=== PATIENT | male | born 1955 | race Caucasian/White ===

== ENCOUNTER 2017-08-24 23:16 | Emergency (ER) | payer OTHER ==
[~2017-08-24] VITALS: Ht 185.4 cm; Wt 136.1 kg
[~2017-08-24 23:16] MED LIST: ASPIRIN CHILDRE81 MG PO; ATORVASTATIN CA20 MG PO; FLOMAX(MONOGRA0.4 MG PO; GLUCOPHAGE500 MG PO; LOPRESSOR 12.12.5 MG PO; MACROBID100 MG PO; METFORMIN1000 MG PO
[2017-08-25 00:04] VITALS: BP 177/74
--- NOTE | 2017-08-25 00:06 | RADIOLOGY REPORT ---
EXAMINATION: XR ANKLE, RIGHT XR FOOT, RIGHT CLINICAL INFORMATION: Pain COMPARISON: 11/05/2016 TECHNIQUE: 3 views of the right ankle. 3 views of the right foot. FINDINGS: Right ankle: No fracture or dislocation. The ankle mortise is congruent. No ankle joint effusion. Vascular calcifications noted. Mild medial soft tissue swelling. Right foot: No fracture or dislocation. Alignment is maintained. Persistent degenerative changes at the first interphalangeal joint with lateral angulation of the distal phalanx in relation to the proximal phalanx. There is joint space narrowing with subchondral sclerosis and osteophyte formation. Small osteophytes at the first metatarsophalangeal joint, unchanged. IMPRESSION: No acute osseous abnormality of the right ankle or foot. Degenerative changes at the first interphalangeal joint, similar to prior.
--- NOTE | 2017-08-25 00:50 | ED ANKLE/FOOT INJURY COMPLAINT ---
History of Present Illness General Chief Complaint: Foot or Ankle Injury Stated Complaint: PT C/O RT FOOT PAIN ? INJURY Source: patient, old records Exam Limitations: no limitations Vital Signs & Intake/Output Vital Signs & Intake/Output Vital Signs Date Time Temp Pulse Resp B/P B/P Pulse O2 O2 Flow FiO2 Mean Ox Delivery Rate 08/25 0004 99.1 96 16 177/74 98 Room Air Room Air Allergies Coded Allergies: NO KNOWN ALLERGIES (10/22/14) Reconcile Medications Aspirin (Children's Aspirin) 81 MG CTB 1 TAB PO DAILY HEART HEALTH Atorvastatin Calcium (Lipitor) 20 MG TAB 1 TAB PO 1700 CHOLESTROL METFORMIN HCL (Metformin) 1,000 MG TABLET 1 TAB PO BID DIABETES (Reported) Novolog ss while inpatient Metoprolol Tartrate (Lopressor) 12.5 MG TAB 1 TAB PO BID HEART HEALTH Oxycodone HCl/Acetaminophen (Percocet 5-325 MG Tablet) 5 MG-325 MG TABLET 1 TAB PO BID PRN PAIN Tamsulosin Hydrochloride (Flomax) 0.4 MG CAP.ER.24H 1 CAP PO DAILY PROSTATE ( Reported) Triage Note: 61YO MALE TO TRIAGE W/CO R FT AND ANKLE PAIN SINCE YESTERDAY. DENIES ANY TRAUMA "I THINK I MAY HAVE STEPPED IN A HOLE WRONG" Triage Nurses Notes Reviewed? yes Occurred: yesterday Duration: day(s): (2), constant Timing: recent history Severity: moderate Severity Numbers: 7 Pain/Injury Location: Right: Foot. Method of Injury: twisted Modifying Factors: Improves With: rest. Worsens With: movement. Associated Symptoms: swelling HPI: 61-year-old male presents to ER for evaluation complaining of right foot and ankle pain since yesterday. Patient states he is given a torn thinks he that he may have stepped in a hole wrong and twisted his foot. He said pain to the dorsal aspect of his right foot since. No numbness or tingling. He denies any radiation of pain up his leg. He's been taking Tylenol without improvement. Pain is worse with weightbearing (Jarett Caraballo) Past History Travel History Traveled to [place] past 21 day No Medical History Any Pertinent Medical History? see below for history Neurological: DYSTONIA EENT: CATARACT REPAIR Cardiovascular: hypertension, hyperlipidemia Respiratory: NONE Gastrointestinal: HERNIA REPAIR Hepatic: NONE Renal: ENLARGED PROSTATE Musculoskeletal: BACK SURGERY AT L5 Psychiatric: NONE Endocrine: diabetes Blood Disorders: NONE Cancer(s): NONE DRAMA TEACHER/Reproductive: NONE Other Medical Hx: Diabetes History of MRSA: No History of VRE: No History of CDIFF: No Surgical History Surgical History: N Psychosocial History Who do you live with Patient/Self Services at Home None What is your primary language Burkinan Tobacco Use: Never used Family History Family History, If Any: MOTHER FH: heart failure FATHER FH: liver disease Hx Contributory? No (Jarett Caraballo) Review of Systems Review of Systems Constitutional: Reports: see HPI. Comments Review of systems: See HPI, All other systems negative. Constitutional, no chills no fever, HEENT: no sore throat no congestion Cardiovascular: No chest pain Skin: no rashes, no change in skin Respiratory: No dyspnea no cough GI: No nausea no vomiting, Muscle skeletal: no back pain, no neck pain, Neurologic: , no headache Heme/endocrine: No bruising (Jarett Caraballo) Physical Exam Physical Exam General Appearance: well developed/nourished, no apparent distress, alert Leg/Knee/Thigh Left: normal range of motion Comments: Well-developed well-nourished patient in no apparent distress. HEENT: Atraumatic, extraocular motion intact Neck: Supple, FROM Back: FROM Respiratory: No respiratory distress. Patient speaking in full complete sentences. Breath sounds clear to auscultation bilaterally: NO W/R/R Upper Extremities: full range of motion Hip/Pelvis: Atraumatic/Stable. FROM. No pain with pelvic compression Knee: Atraumatic/stable. FROM. No joint swelling, no effusion. No laxity Leg: Atraumatic. Nontender. No edema, 5 out of 5 strength in the lower extremity, normal dorsiflexion of great toe bilaterally, gross sensation is intact, Ankle/Foot: Tenderness to palpation over the dorsal right foot no ecchymosis Atraumatic/stable. Skin intact. FROM. No swelling, no effusion. No laxity on exam Pulses: Normal/equal DP/PT pulses bilaterally. Brisk cap refill Neuro: awake, alert, and oriented to person, place and time. There were no obvious focal neurologic abnormalities. Skin: Warm & dry;No appreciable rash on exposed skin Psych: Mood affect normal, normal memory normal judgment. (Jarett Caraballo) Progress Differential Diagnosis: cellulitis, septic arthritis, gout, fracture, dislocation, sprain, contusion Plan of Care: Orders Procedure Date/time Status Durable Medical Equipment 08/25 54 Active Diagnostic Imaging: Viewed by Me: Radiology Read. Discussed w/RAD: Radiology Read. Radiology Impression: PATIENT: EL MALDONADO PRESENT AGE: 61 PATIENT ACCOUNT NO: [id number] : 59 LOCATION: [facility] ORDERING PHYSICIAN: Chuy Lau MD SERVICE DATE: 08/24/17 EXAM TYPE: RAD - XRY-ANKLE 3 OR MORE VIEWS R; XRY-FOOT COMPLETE, R EXAMINATION: XR ANKLE, RIGHT XR FOOT, RIGHT CLINICAL INFORMATION: Pain COMPARISON: 11/05/2016 TECHNIQUE: 3 views of the right ankle. 3 views of the right foot. FINDINGS: Right ankle: No fracture or dislocation. The ankle mortise is congruent. No ankle joint effusion. Vascular calcifications noted. Mild medial soft tissue swelling. Right foot: No fracture or dislocation. Alignment is maintained. Persistent degenerative changes at the first interphalangeal joint with lateral angulation of the distal phalanx in relation to the proximal phalanx. There is joint space narrowing with subchondral sclerosis and osteophyte formation. Small osteophytes at the first metatarsophalangeal joint, unchanged. IMPRESSION: No acute osseous abnormality of the right ankle or foot. Degenerative changes at the first interphalangeal joint, similar to prior. DICTATED BY: Daron Ku MD DATE/TIME DICTATED:08/25/172057 TRAY ROOM WORKER:LILLY DATE/TIME TRANSCRIBED:08/25/172057 CONFIDENTIAL, DO NOT COPY WITHOUT APPROPRIATE AUTHORIZATION. <Electronically signed in Other Vendor System> SIGNED BY: Daron Ku MD 08/25/17 0006 (Jarett Caraballo) Departure Departure Time of Disposition: 54 Disposition: HOME OR SELF CARE Condition: Stable Clinical Impression Primary Impression: Foot sprain Referrals: José Miguel WHITTAKER,Chuy Glasgow (PCP/Family) Ken Cannon MD Additional Instructions: REST, ICE, TYLENOL MOTRIN FOR PAIN. PERCOCET FOR BREAKTHROUGH PAIN- THIS IS A NARCOTIC AND HIGHLY ADDICTIVE. NO DRIVING OR DRINKING ALCOHOL WHILE TAKING. KEEP FOOT ELEVATED. PNEUMATIC BOOT DISCUSSED. FOLLOW UP WITH ORTHOPEDIST DR CANNON IF SYMPTOMS PERSIST. Departure Forms: Customer Survey General Discharge Information Prescriptions: Current Visit Scripts Oxycodone HCl/Acetaminophen (Percocet 5-325 MG Tablet) 1 TAB PO BID PRN PAIN #8 TAB (Reymundo SANTANA,Jarett) PA/SECURITY SCREENER Co-Sign Statement Statement: ED Attending supervision documentation- [] I saw and evaluated the patient. I have also reviewed all the pertinent lab results and diagnostic results. I agree with the findings and the plan of care as documented in the PA's/SECURITY SCREENER's documentation. [X] I have reviewed the ED Record and agree with the PA's/SECURITY SCREENER's documentation. [] Additions or exceptions (if any) to the PAs/SECURITY SCREENER's note and plan are summarized below: [] (Sid WHITTAKER,Chuy Hernandez)
[2017-08-25] MEDS ORDERED: PERCOCET 5-3251 EACH PO (00:56)
== END 2017-08-25 01:11 ==
LOC: ERH 23:16
DX: S93.601A Unspecified sprain of right foot, initial encounter (principal); X58.XXXA Exposure to other specified factors, initial encounter; Y92.9 Unspecified place or not applicable; Y93.9 Activity, unspecified
CPT/HCPCS: 73610-RT; 73630-RT